=== PATIENT | female | born 1965 | race Two or more races ===

== ENCOUNTER → 2018-02-27 | Outpatient (CLI) | payer OTHER | END | disposition home or self-care (01) | LOC: HKI 10:57 | DX: M25.561 Pain in right knee (principal); M17.11 Unilateral primary osteoarthritis, right knee | CPT/HCPCS: 73564; 73564-RT ==

== ENCOUNTER → 2018-07-11 | Outpatient (CLI) | payer OTHER | END | disposition home or self-care (01) | LOC: HKI 13:32 | DX: M17.11 Unilateral primary osteoarthritis, right knee (principal); M25.572 Pain in left ankle and joints of left foot | CPT/HCPCS: G0463 ==